=== PATIENT | female | born 1980 | race Caucasian/White ===

== ENCOUNTER → 2021-01-28 | Outpatient (CLI) | payer OTHER ==
--- NOTE | 2021-01-28 10:29 | RAD ---
US PELVIS COMPLETE History: Reason: BLOATING, RT PELVIC PAIN W/ INTERCOURSE, IUD x8 YEARS / Spl. Instructions: / Histor y: Comparison: None Technique: Grayscale and color Doppler imaging of the pelvis was performed using transabdominal techn ique. Findings: The uterus measures 9.4 x 5.3 x 4.4 cm. Uterus has an unremarkable appearance. The endometrial stri pe measures 2.4 mm. IUD noted within the upper endometrial canal. Right ovary measures 3 x 3 x 1.6 cm. Dominant right ovarian follicle measures 1.0 cm. Left ovary measures 2.5 x 3 x 3.7 cm. Normal Doppler flow to the ovaries. No adnexal masses are seen. IMPRESSION: 1. No acute pelvic pathology. 2. IUD within the upper endometrial canal. Electronically signed by: Bryan Dey DO (01/28/2021 10:27 AM) [id number]
== END ==
LOC: US 08:32
PROVIDERS: ATTEND Family Medicine Sports Medicine
DX: N83.01 Follicular cyst of right ovary (principal); R14.0 Abdominal distension (gaseous); R10.2 Pelvic and perineal pain; Z80.9 Family history of malignant neoplasm, unspecified
CPT/HCPCS: 76856